=== PATIENT | female | born 1945 | race Caucasian/White ===

== ENCOUNTER 2019-09-25 00:37 | Inpatient (IN) | payer MEDICAID ==
[~2019-09-25] VITALS: Ht 157.5 cm; Wt 61.7 kg
[2019-09-25] MEDS ORDERED: VISCOUS LIDOCAINE 2% 15 ML UDC PO STA (01:08)
[2019-09-25] MEDS ORDERED: MAGNESIUM/ALUMINUM HYDROXIDE/SIMETHICONE 30ML UDC PO STA (01:08)
[2019-09-25 01:44] LABS: CHLORIDE 100 mEq/L (98-107)
[2019-09-25 02:26] LABS: BASOPHILS % 0.6 % (0.0-2.0); EOSINOPHILS % 0.1 % (0.0-5.0); HEMATOCRIT. 36.3 % (36.0-48.0); HEMOGLOBIN. 12.4 g/dL (12.0-16.0); LYMPHOCYTES % 10.6 % (20.0-50.0); MEAN CORPUSCULAR HEMOGLOBIN 30.1 pg (28.0-32.0); MEAN CORPUSCULAR VOLUME 87.9 fL (81.0-99.0); MEAN PLATELET VOLUME 9.8 fl (7.4-10.4); MONOCYTES % 5.8 % (2.0-8.0); NEUTROPHILS % 82.9 % (40.0-76.0); PLATELET 225 x1000/uL (130-400); RED BLOOD CELL COUNT 4.13 mill/uL (4.2-5.4); RED CELL DISTRIBUTION WIDTH 13.6 % (11.6-14.6)
[2019-09-25 03:50] LABS: CLARITY URINE CLEAR (CLEAR); COLOR URINE YELLOW (YELLOW); KETONES URINE NEGATIVE (NEGATIVE); LEUKOCYTE ESTERASE URINE NEGATIVE (NEGATIVE); NITRITE URINE NEGATIVE (NEGATIVE); OCCULT BLOOD URINE NEGATIVE (NEGATIVE); PROTEIN URINE TRACE (NEGATIVE); SPECIFIC GRAVITY URINE 1.006 (1.005-1.030)
[2019-09-25] MEDS ORDERED: PIPERACILLIN/TAZOBACTAM 3.375GM/50ML PREMIX IV SCH (05:15)
[2019-09-25] MEDS ORDERED: MORPHINE SULFATE 4 MG/ML CPJ (NOT FOR IM USE) IV ONE (05:15)
[2019-09-25] MEDS ORDERED: DOCUSATE SODIUM 100MG CAPSULE PO PRN (06:30)
[2019-09-25] MEDS ORDERED: HYDROCODONE/ACETAMINOPHEN 5/325MG TABLET PO PRN (06:30)
[2019-09-25] MEDS ORDERED: ONDANSETRON HCL 4MG/2ML INJ IV PRN (06:30)
[2019-09-25] MEDS ORDERED: MORPHINE SULFATE 2 MG/ML CPJ (NOT FOR IM USE) IV PRN (06:30)
[2019-09-25] MEDS ORDERED: GUAIFENESIN 200MG/10ML SUGAR FREE UDC PO PRN (06:30)
[2019-09-25] MEDS ORDERED: CLONIDINE 0.1MG TABLET PO PRN (06:30)
[2019-09-25] MEDS ORDERED: ACETAMINOPHEN 325MG TABLET PO PRN (06:30)
[2019-09-25] MEDS: DEXT 5%/0.45% NACL 1000ML 1,000 ML IV SCH (09:00)
[2019-09-25] MEDS: ENOXAPARIN 40MG/0.4ML SYR SUBCUT SCH (09:04)
[2019-09-25] MEDS: BLOOD SUGAR DIAGNOSTIC STRIP TEST SCH ×4 (09:05→20:54)
[2019-09-25] MEDS: INSULIN LISPRO 100 UNITS/ML SUBCUT SCH ×4 (09:08→20:54)
[2019-09-25] MEDS ORDERED: DEXTROSE 50% WATER 50ML SYRINGE IV PRN (09:15)
[2019-09-25 11:32] VITALS: BP 147/68
[2019-09-25] MEDS ORDERED: METF-815 MT (11:55)
[2019-09-25] MEDS ORDERED: METO1TAB26 MT (11:55)
[2019-09-25] MEDS ORDERED: DICY10SO PO (11:55)
[2019-09-25] MEDS ORDERED: LISI10TA5 MT (11:55)
[2019-09-25] MEDS ORDERED: ATOR40TA70 MT (11:55)
[2019-09-25] MEDS ORDERED: LEVO75TA7 MT (11:55)
[2019-09-25 16:00] VITALS: BP 128/65
[2019-09-25] MEDS ORDERED: PNEUMOCOCCAL 23-VAL P-SAC VAC 0.5 ML IM ONE (18:00)
[2019-09-25 20:00] VITALS: BP 129/66
[2019-09-26] VITALS: BP 146/73
[2019-09-26 04:00] VITALS: BP 141/60
[2019-09-26 07:11] LABS: BASOPHILS % 0.5 % (0.0-2.0); EOSINOPHILS % 0.5 % (0.0-5.0); HEMATOCRIT. 35.9 % (36.0-48.0); HEMOGLOBIN. 12.3 g/dL (12.0-16.0); LYMPHOCYTES % 12.2 % (20.0-50.0); MEAN CORPUSCULAR HEMOGLOBIN 30.1 pg (28.0-32.0); MEAN CORPUSCULAR VOLUME 87.8 fL (81.0-99.0); MEAN PLATELET VOLUME 9.7 fl (7.4-10.4); MONOCYTES % 6.9 % (2.0-8.0); NEUTROPHILS % 79.9 % (40.0-76.0); PLATELET 257 x1000/uL (130-400); RED BLOOD CELL COUNT 4.09 mill/uL (4.2-5.4); RED CELL DISTRIBUTION WIDTH 13.2 % (11.6-14.6)
[2019-09-26 07:16] LABS: CHLORIDE 101 mEq/L (98-107)
[2019-09-26 07:29] LABS: LDL CHOLESTEROL 66 mg/dL (5-100)
[2019-09-26 07:33] LABS: HDL CHOLESTEROL 34 mg/dL (40-59)
[2019-09-26] MEDS: INSULIN LISPRO 100 UNITS/ML SUBCUT SCH ×2 (07:45→13:09)
[2019-09-26] MEDS: BLOOD SUGAR DIAGNOSTIC STRIP TEST SCH ×2 (07:45→13:09)
[2019-09-26 08:00] VITALS: BP 126/58
[2019-09-26] MEDS: ENOXAPARIN 40MG/0.4ML SYR SUBCUT SCH (09:10)
[2019-09-26] MEDS ORDERED: MAGNESIUM HYDROXIDE 400MG/5ML 30ML UDC PO PRN (12:15)
[2019-09-26 13:39] LABS: HEPATITIS A AB IGM NEGATIVE (NEGATIVE)
[2019-09-26 14:27] LABS: HEPATITIS B SURFACE ANTIGEN NEGATIVE
[2019-09-26 15:32] VITALS: BP 127/64
[2019-09-26] MEDS: DEXT 5%/0.45% NACL 1000ML 1,000 ML IV SCH (16:28)
== END 2019-09-26 16:49 | disposition home or self-care (01) | DRG 282 ==
LOC: ER 00:37 → MICUSO 05:26 → 6EST 11:33
PROVIDERS: ADMIT Hospitalist; ATTEND Hospitalist
DX: K85.90 Acute pancreatitis without necrosis or infection, unspecified (principal); E11.9 Type 2 diabetes mellitus without complications; E03.9 Hypothyroidism, unspecified; I10 Essential (primary) hypertension; K80.20 Calculus of gallbladder without cholecystitis without obstruction; E78.5 Hyperlipidemia, unspecified; R74.0 Nonspecific elevation of levels of transaminase and lactic acid dehydrogenase [LDH]; E78.00 Pure hypercholesterolemia, unspecified; Z88.0 Allergy status to penicillin
CPT/HCPCS: 36415; 74176; 76705; 78227; 80053; 80061; 80076; 81003; 82962; 83036; 85025; 86705; 86709; 86803; 87340; 90732; 93970; 96374; 99285; A9537; J1650; J1815; J2270; J2543